=== PATIENT | male | born 1990 | race Two or more races ===

== ENCOUNTER 2021-02-05 22:12 | Emergency (ER) | payer BC, OTHER ==
[~2021-02-05] VITALS: Ht 172.7 cm; Wt 97.5 kg
--- NOTE | 2021-02-05 22:30 | NUR ---
bibs for c/o palpitation. denied CP. no SOB. no N/V or dizziness. pt ambulatory to bed 10, placed on a monitor . w. fluctuating HR. per pt he had a second dose of coronavirus vaccine yesterday. needs met. will cont to monitor
[2021-02-05] MEDS ORDERED: LORAZEPAM INJ 2 MG/ML VIAL ONE (22:40)
[2021-02-05 22:42] LABS: BASOPHILS % (AUTO) 0.3 % (0.0-2.0); EOSINOPHILS % (AUTO) 0.5 % (0.0-6.0); HEMATOCRIT 47 % (39-51); HEMOGLOBIN 16.4 g/dL (13.5-17.5); LYMPHOCYTES # (AUTO) 1.5 /CMM (0.8-4.8); LYMPHOCYTES % (AUTO) 16.9 % (20.0-44.0); MEAN CORPUSCULAR HGB CONC 35 g/dl (31.0-36.0); MEAN CORPUSCULAR VOLUME 80 fL (80-96); MONOCYTES # (AUTO) 0.5 /CMM (0.1-1.30); MONOCYTES % (AUTO) 5.4 % (2.0-12.0); NEUTROPHILS # (AUTO) 6.7 /CMM (1.8-8.9); NEUTROPHILS % (AUTO) 76.9 % (43.0-81.0); PLATELET COUNT (AUTO) 258 /CMM (150-450); RED BLOOD CELL COUNT(AUTO) 5.92 MIL/uL (4.5-6.0); WHITE BLOOD COUNT (AUTO) 8.7 K/uL (4.3-11.0)
[2021-02-05 22:50] LABS: CALCIUM, SERUM 9.2 mg/dL (8.5-10.1); CARBON DIOXIDE 28 mmol/L (21-32); CHLORIDE 101 mmol/L (98-107); CREATININE 1.2 mg/dL (0.6-1.3); GLUCOSE 106 mg/dL (74-106); POTASSIUM 3.3 mmol/L (3.5-5.1); SODIUM SERUM 139 mmol/L (136-145); UREA NITROGEN, BLOOD 17 mg/dL (7-18)
[2021-02-05] MEDS ORDERED: LORAZEPAM INJ 2 MG/ML VIAL IV ONE (23:00)
[2021-02-05] MEDS ORDERED: METOPROLOL SUCCINATE 25 MG TAB.SR.24H PO SCH ×2 (23:00→23:35)
[2021-02-05] MEDS ORDERED: IV NS 0.9% 1,000 ML IV ONE (23:00)
--- NOTE | 2021-02-05 23:04 | NUR ---
X RAY AT BED SIDE
[2021-02-05] MEDS ORDERED: METO25TA4 PO (23:38)
--- NOTE | 2021-02-05 23:57 | NUR ---
pt is medically stable for D/C per , vss. IV removed. Catheter intact and site benign. Pressure and 4x4 applied to site. No bleeding noted.Patient discharged to home in stable condition. Rx and Written and verbal after care instructions given. Patient verbalizes understanding of instruction.
[2021-02-06 00:06] VITALS: BP 128/60
== END 2021-02-06 00:07 | disposition home or self-care (01) ==
LOC: ER 22:15
DX: R00.2 Palpitations (principal); R00.0 Tachycardia, unspecified; Z79.899 Other long term (current) drug therapy
CPT/HCPCS: 36415; 71045; 80048; 84484; 85025; 93005 ×3; 96361; 96374; 99285; J2060; J7030